=== PATIENT | female | born 1985 | race Hispanic/Latino ===

== ENCOUNTER 2022-07-01 16:20 | Emergency (ER) | payer OTHER ==
[~2022-07-01] VITALS: Ht 165.1 cm; Wt 95.3 kg
[2022-07-01 17:32] VITALS: BP 135/97
[2022-07-01] MEDS ORDERED: KETOROLAC 30MG VIAL (30MG/ML) IM ONE (19:00)
[2022-07-01] MEDS ORDERED: DICL75TA5 PO (19:31)
== END 2022-07-01 20:06 | disposition home or self-care (01) ==
LOC: EDH 16:20
DX: S82.64XA Nondisplaced fracture of lateral malleolus of right fibula, initial encounter for closed fracture (principal); X50.1XXA Overexertion from prolonged static or awkward postures, initial encounter; Y93.89 Activity, other specified; Y92.89 Other specified places as the place of occurrence of the external cause; Y99.8 Other external cause status
CPT/HCPCS: 99283; 29515; 73600; 96372; J1885

== ENCOUNTER 2022-08-16 20:16 | Inpatient (IN) | payer OTHER ==
[~2022-08-16] VITALS: Ht 165.1 cm; Wt 96.2 kg
[~2022-08-16 20:16] MED LIST: DICL75TA5 PO
[2022-08-16 21:04] LABS: BASOPHILS % (AUTO) 0.3 % (0.0-5.0); EOSINOPHILS % (AUTO) 2.1 % (0.0-8.0); HEMATOCRIT 35.1 % (36-48); LYMPHOCYTES % (AUTO) 17.8 % (21.0-51.0); MEAN CORPUSCULAR HEMOGLOBIN 31.1 pg (27.0-33.0); MEAN CORPUSCULAR HGB CONC 34.2 g/dL (32.0-36.0); MEAN CORPUSCULAR VOLUME 90.9 fL (79-99); MONOCYTES % (AUTO) 14.5 % (3.0-13.0); PLATELET COUNT (AUTO) 286 K/uL (130-400); RED BLOOD CELL COUNT(AUTO) 3.86 MIL/uL (4.00-5.50); RED CELL DISTRIBUTION WIDTH 17.2 % (11.0-15.5); WHITE BLOOD COUNT (AUTO) 9.3 K/uL (4.8-10.8)
[2022-08-16] MEDS ORDERED: IPRATROPIUM/ALBUTEROL SULFATE 3 ML SOLUTION IH ONE (21:30)
[2022-08-16 21:54] LABS: CREATININE 0.6 mg/dL (0.5-1.5); POTASSIUM 4.2 mmol/L (3.5-5.1)
[2022-08-16 21:58] LABS: ALBUMIN 3.6 g/dL (3.5-5.0); TOTAL PROTEIN, SERUM 7.6 g/dL (6.0-8.3)
[2022-08-16] MEDS ORDERED: IOHEXOL 350 MG/ML 100ML INFUS..BTL IV ONE (22:10)
[2022-08-16] MEDS ORDERED: IOHEXOL-350 75 ML VIAL IV ONE (22:10)
[2022-08-16] MEDS ORDERED: ONDANSETRON 4MG INJ IV PRN (23:00)
[2022-08-16] MEDS ORDERED: ACETAMINOPHEN 325 MG TAB PO PRN ×2 (23:00)
[2022-08-16] MEDS ORDERED: LACTULOSE 20 GM/30 ML UDCUP PO PRN (23:00)
[2022-08-16] MEDS: 0.9%NACL 1000ML 1,000 ML IV SCH (23:03)
[2022-08-17] VITALS (7 sets, daily range): BP systolic 102–120; BP diastolic 53–73
[2022-08-17] MEDS: IPRATROPIUM/ALBUTEROL SULFATE 3 ML SOLUTION IH SCH ×5 (01:31→23:46)
[2022-08-17] MEDS ORDERED: OXCA600T3 PO (03:08)
[2022-08-17] MEDS ORDERED: HYDR50CA50 PO (03:08)
[2022-08-17] MEDS ORDERED: ZOLP5TAB8 PO (03:13)
[2022-08-17] MEDS ORDERED: TEMAZEPAM 7.5 MG CAPSULE PO ONE (03:30)
[2022-08-17 06:20] LABS: CREATININE 0.6 mg/dL (0.5-1.5); POTASSIUM 4.5 mmol/L (3.5-5.1)
[2022-08-17] MEDS: ENOXAPARIN SODIUM 40 MG/0.4 ML SYRINGE SQ SCH (08:44)
[2022-08-17] MEDS: FAMOTIDINE 20MG TAB PO SCH ×2 (08:44→20:40)
[2022-08-17] MEDS: 0.9%NACL 1000ML 1,000 ML IV SCH ×2 (08:44→15:23)
[2022-08-17 10:46] LABS: CREATININE 0.6 mg/dL (0.5-1.5); POTASSIUM 4.7 mmol/L (3.5-5.1)
[2022-08-17 16:40] LABS: CREATININE 0.6 mg/dL (0.5-1.5); POTASSIUM 4.4 mmol/L (3.5-5.1)
[2022-08-18] MEDS: 0.9%NACL 1000ML 1,000 ML IV SCH (01:13)
[2022-08-18] MEDS ORDERED: TEMAZEPAM 7.5 MG CAPSULE PO ONE ×2 (01:46→02:00)
[2022-08-18 03:06] VITALS: BP 91/57
[2022-08-18 06:20] VITALS: BP 98/67
[2022-08-18 06:40] LABS: HEMATOCRIT 32.5 % (36-48); MEAN CORPUSCULAR HEMOGLOBIN 30.8 pg (27.0-33.0); MEAN CORPUSCULAR HGB CONC 34.2 g/dL (32.0-36.0); MEAN CORPUSCULAR VOLUME 90.3 fL (79-99); RED BLOOD CELL COUNT(AUTO) 3.6 MIL/uL (4.00-5.50); RED CELL DISTRIBUTION WIDTH 17.5 % (11.0-15.5); WHITE BLOOD COUNT (AUTO) 9.7 K/uL (4.8-10.8)
[2022-08-18 07:01] LABS: ALBUMIN 3.2 g/dL (3.5-5.0); CREATININE 0.6 mg/dL (0.5-1.5); POTASSIUM 4.4 mmol/L (3.5-5.1)
[2022-08-18] MEDS: IPRATROPIUM/ALBUTEROL SULFATE 3 ML SOLUTION IH SCH (07:05)
[2022-08-18] MEDS: ENOXAPARIN SODIUM 40 MG/0.4 ML SYRINGE SQ SCH (09:00)
[2022-08-18] MEDS: FAMOTIDINE 20MG TAB PO SCH (09:00)
[2022-08-18] MEDS ORDERED: LORA10TA7 PO (09:42)
[2022-08-18] MEDS ORDERED: FLUT15.845 NS (09:42)
== END 2022-08-18 10:53 | disposition home or self-care (01) | DRG 202 ==
LOC: EDH 20:16 → EDHIP 20:17 → 2DH 08-17 01:00 → WSH 08-17 15:08
PROVIDERS: ADMIT Hospitalist; ATTEND Hospitalist
DX: J45.901 Unspecified asthma with (acute) exacerbation (principal); E87.1 Hypo-osmolality and hyponatremia; E66.09 Other obesity due to excess calories; G40.909 Epilepsy, unspecified, not intractable, without status epilepticus; Z20.822 Contact with and (suspected) exposure to COVID-19; G47.00 Insomnia, unspecified; F41.9 Anxiety disorder, unspecified; Z98.84 Bariatric surgery status; Z90.81 Acquired absence of spleen; Z68.35 Body mass index [BMI] 35.0-35.9, adult
CPT/HCPCS: 36415; 71045; 71270; 80048; 80053; 84484; 84703; 85025; 85027; 85378; 87635; 87804; 93005; 93306; 93356; 93971; 94640; 94664; C9803; G0378; J1650; J7030; Q9967

== ENCOUNTER 2023-05-29 06:40 | Emergency (ER) | payer OTHER ==
[~2023-05-29] VITALS: Ht 165.1 cm; Wt 90.3 kg
[~2023-05-29 06:40] MED LIST changes: -DICL75TA5 PO; +FLUT15.845 NS; +HYDR50CA50 PO; +LORA10TA7 PO; +OXCA600T3 PO; +ZOLP5TAB8 PO
[2023-05-29 07:44] LABS: RAPID GROUP A STREP negative (NEGATIVE)
[2023-05-29 07:54] LABS: INFLUENZA TYPE A Negative For Type A (NEGATIVE)
[2023-05-29 07:56] LABS: INFLUENZA TYPE B Positive For Type B (NEGATIVE)
[2023-05-29 07:57] LABS: SARS-CoV-2, RNA, NAAT POSITIVE SARS CoV-2 (NEGATIVE)
[2023-05-29] MEDS: KETOROLAC 60 MG VIAL (30MG/ML) IM ONE (08:05)
[2023-05-29] MEDS: SOLU-MEDROL 125MG VIAL IM ONE (08:06)
[2023-05-29] MEDS ORDERED: ALBUHFA IH (08:12)
[2023-05-29] MEDS ORDERED: BENZ-39 PO (08:12)
[2023-05-29] MEDS: ALBUTEROL 0.083% 2.5 MG/3 ML INH IH ONE (08:13)
[2023-05-29 08:17] VITALS: PULSE 74; RESP 20
[2023-05-29 09:06] VITALS: BP 147/68; PULSE 77; RESP 16; O2SAT 99
== END 2023-05-29 09:09 | disposition home or self-care (01) ==
LOC: EDH 06:40
DX: U07.1 COVID-19 (principal); J10.1 Influenza due to other identified influenza virus with other respiratory manifestations; F41.9 Anxiety disorder, unspecified; J45.909 Unspecified asthma, uncomplicated; Z79.899 Other long term (current) drug therapy; Z98.890 Other specified postprocedural states
CPT/HCPCS: 99284; 87635; 87880; 87804 ×2; 96372 ×2; 94640; J2930; J1885